=== PATIENT | female | born 1980 | race Caucasian/White ===

== ENCOUNTER 2017-06-10 16:44 | Outpatient (CLI) ==
[2015-05-23 11:37] VITALS: BMI 21.2
--- NOTE | 2017-06-11 08:15 | DI ---
EXAM: Two views of the chest. History: Chest pain, smoking Comparison: Chest radiograph 05/23/2015 Findings: Heart size is within normal limits. No focal consolidation. No appreciable pleural fluid and no pneumothorax. No acute osseous abnormalities. Calcified granuloma within the right lower lo be. Impression: No acute cardiopulmonary process
== END 2017-06-10 16:45 | disposition home or self-care (01) ==
LOC: RAD 16:44
PROVIDERS: ATTEND Internal Medicine
DX: F17.210 Nicotine dependence, cigarettes, uncomplicated (principal)

== ENCOUNTER 2018-03-15 16:30 | Emergency (ER) ==
[2018-03-15 16:37] VITALS: BP 145/90; TEMP 99.2; BMI 18.3
[2018-03-15] MEDS ORDERED: TORADOL IM STA (17:25)
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
== END 2018-03-15 18:50 | disposition home or self-care (01) ==
LOC: ED 16:30
DX: S13.4XXA Sprain of ligaments of cervical spine, initial encounter (principal); V89.2XXA Person injured in unspecified motor-vehicle accident, traffic, initial encounter; F17.210 Nicotine dependence, cigarettes, uncomplicated
CPT/HCPCS: 81001; 81025; 96372; 99283